=== PATIENT | female | born 1970 | race Caucasian/White ===

== ENCOUNTER → 2016-10-15 | Outpatient (CLI) | payer OTHER ==
[~2016-10-15] VITALS: Ht 170.2 cm; Wt 75.3 kg
[2016-10-15 09:47] VITALS: BP 122/75
--- NOTE | 2016-10-15 13:19 | RAD ---
PROCEDURE MR arthrogram of the left shoulder HISTORY Pain of the entire left shoulder since early September 2016. No known injury. TECHNIQUE Intra-articular contrast injected by different radiologist into the left shoulder, who will dictate that procedure separately. The standard 4 plane sequences were obtained. COMPARISON None FINDINGS Acromioclavicular joint is intact. No significant subdeltoid bursal fluid or contrast. No evidence of rotator cuff tear. No evidence of labral tear. No acute articular cartilage defect. No evidence of HAGL lesion. Biceps tendon is intact. No bone lesion or acute fracture. No acute soft tissue injury. IMPRESSION No significant abnormality. Electronically signed by: James Blanco MD (October 15, 2016 13:17:55)
== END | disposition home or self-care (01) ==
LOC: MRI 07:41
PROVIDERS: ATTEND Family Medicine
DX: S43.422A Sprain of left rotator cuff capsule, initial encounter (principal); X58.XXXA Exposure to other specified factors, initial encounter; Y93.89 Activity, other specified; Y92.89 Other specified places as the place of occurrence of the external cause; Y99.8 Other external cause status
CPT/HCPCS: 73222

== ENCOUNTER → 2016-10-15 | Outpatient (CLI) | payer OTHER ==
[2013-12-10 19:33] VITALS: BP 121/67
[~2016-10-15] MED LIST: GADOBUTROL 7.5 MMOL/7.5 ML VIAL INT ART ONE; IOHEXOL 300 MG/ML 50 ML VIAL. INT ART ONE; LIDOCAINE 1% / SOD BICARB 8.4% 20 ML VIAL. IJ ONE
--- NOTE | 2016-10-15 12:42 | RAD ---
Exam performed: Left shoulder injection. History: Chronic left shoulder pain. Date of service: 10/15/16. Comparison: None available Discussion: The procedure was explained to the patient and informed consent was obtained. Under fluoroscopy a site was marked on the left shoulder for subsequent arthrocentesis. The part was prepped and draped in the usual posterior fashion. 5 cc of 1% lidocaine was infiltrated into the skin and deeper tissues. Thereafter a 22-gauge spinal needle was advanced from the premarked site into the left shoulder. Intra-articular location of the needle tip was confirmed by injecting 5 cc of Omnipaque 300. Thereafter a total of 20 cc solution of 150 cc saline in 0.7 cc Gadavist mixture was injected into the left shoulder joint. After withdrawing the needle, dry swelling Band-Aid was applied at the puncture site. Patient was then sent for MRI of the left shoulder. Total fluoroscopy time of 0.4 minutes was utilized and 2 fluoroscopic spot images were seen on the PACS system. Impression: Technically successful left shoulder injection for subsequent MR arthrogram.
== END | disposition home or self-care (01) ==
LOC: RAD 09:44
PROVIDERS: ATTEND Family Medicine
DX: S43.402A Unspecified sprain of left shoulder joint, initial encounter (principal); X58.XXXA Exposure to other specified factors, initial encounter; Y93.89 Activity, other specified; Y92.89 Other specified places as the place of occurrence of the external cause; Y99.8 Other external cause status
CPT/HCPCS: 20605; 77002; Q9967; A9585

== ENCOUNTER → 2017-05-12 | Outpatient (CLI) | payer OTHER ==
[2013-12-10 19:33] VITALS: BP 121/67
--- NOTE | 2017-05-12 11:59 | KCIC ---
DATE: May 12, 2017 EXAM: DIGITAL DIAGNOSTIC BILATERAL HISTORY: Follow-up of asymmetric tissue densities right breast COMPARISON: May 06, 2016 and April 09, 2015 TECHNIQUE: Routine digital mammographic views were obtained. This study was interpreted with the benefit of Computerized Aided Detection (CAD). The breast parenchyma shows scattered fibroglandular densities. Breast parenchyma level B. FINDINGS: There is no suspicious findings. There is a marker from prior biopsy in the lateral right breast. IMPRESSION: No suspicious findings. BI-RADS CATEGORY: 1 NEGATIVE RECOMMENDED FOLLOW-UP: 12M 12 MONTH FOLLOW-UP PQRS compliance statement: Patient information was entered into a reminder system with a target due date May 12, 2018 for the next mammogram. Mammography is a sensitive method for finding small breast cancers, but it does not detect them all and is not a substitute for careful clinical examination. A negative mammogram does not negate a clinically suspicious finding and should not result in delay in biopsying a clinically suspicious abnormality. "Our facility is accredited by the [employer] Mammography Program."
== END | disposition home or self-care (01) ==
LOC: KCIC MAMMO 10:55
PROVIDERS: ATTEND Family Medicine
DX: N64.89 Other specified disorders of breast (principal)
CPT/HCPCS: G0204; 77066

== ENCOUNTER → 2017-05-25 | Outpatient (CLI) | payer OTHER ==
[2013-12-10 19:33] VITALS: BP 121/67
[2017-05-25 10:01] LABS: ALBUMIN 3.9 g/dL (3.4-5.0); ALBUMIN/GLOBULIN RATIO 0.9 (1.0-1.7); CALCIUM 8.5 mg/dL (8.5-10.1); CREATININE 0.8 mg/dL (0.6-1.0); GFR 77.6; POTASSIUM 4.3 mmol/L (3.5-5.1); TOTAL BILIRUBIN 0.4 mg/dL (0.2-1.0); TOTAL PROTEIN 8.2 g/dL (6.4-8.2)
[2017-05-25 10:02] LABS: CHOLESTEROL/HDL RATIO 4.4
== END | disposition home or self-care (01) ==
LOC: LAB 09:30
PROVIDERS: ATTEND Family Medicine
DX: F41.9 Anxiety disorder, unspecified (principal); E78.5 Hyperlipidemia, unspecified
CPT/HCPCS: 36415; 80053; 80061; 82306

== ENCOUNTER 2018-03-21 19:57 | Emergency (ER) | payer OTHER ==
[~2018-03-21] VITALS: Ht 170.2 cm; Wt 81.6 kg
[2018-03-21 20:12] VITALS: BP 149/70
[2018-03-21] MEDS ORDERED: NAPR-514 PO (21:02)
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
== END 2018-03-21 21:04 | disposition home or self-care (01) ==
LOC: ER 19:57
DX: S99.912A Unspecified injury of left ankle, initial encounter (principal); Z90.710 Acquired absence of both cervix and uterus; Z88.2 Allergy status to sulfonamides; W22.8XXA Striking against or struck by other objects, initial encounter; Y93.89 Activity, other specified; Y92.89 Other specified places as the place of occurrence of the external cause; Y99.8 Other external cause status
CPT/HCPCS: 73610; 99284

== ENCOUNTER → 2018-04-20 | Outpatient (CLI) | payer OTHER ==
[2018-03-21 20:12] VITALS: BP 149/70
[~2018-04-20] MED LIST changes: -GADOBUTROL 7.5 MMOL/7.5 ML VIAL INT ART ONE; -IOHEXOL 300 MG/ML 50 ML VIAL. INT ART ONE; -LIDOCAINE 1% / SOD BICARB 8.4% 20 ML VIAL. IJ ONE; +NAPR-514 PO
[2018-04-20 09:11] LABS: ALBUMIN 3.8 g/dL (3.4-5.0); CALCIUM 9.4 mg/dL (8.5-10.1); CREATININE 0.8 mg/dL (0.6-1.0); GFR 77.2; POTASSIUM 4.1 mmol/L (3.5-5.1); TOTAL BILIRUBIN 0.3 mg/dL (0.2-1.0); TOTAL PROTEIN 7.7 g/dL (6.4-8.2)
[2018-04-20 09:12] LABS: CHOLESTEROL/HDL RATIO 4.8
== END | disposition home or self-care (01) ==
LOC: LAB 08:22
PROVIDERS: ATTEND Family Medicine
DX: E78.5 Hyperlipidemia, unspecified (principal); R53.83 Other fatigue; R20.0 Anesthesia of skin
CPT/HCPCS: 36415; 80053; 80061; 82607; 84436; 84443

== ENCOUNTER → 2018-05-09 | Outpatient (CLI) | payer OTHER ==
[2018-05-09 20:12] LABS: FSH 25.1 mIU/mL (.); LUTEINIZING HORMONE 10.3 mIU/mL (.)
== END | disposition home or self-care (01) ==
LOC: LAB 11:30
PROVIDERS: ATTEND Family Medicine
DX: N95.9 Unspecified menopausal and perimenopausal disorder (principal)
CPT/HCPCS: 36415; 83001; 83002

== ENCOUNTER → 2018-05-15 | Outpatient (CLI) | payer OTHER ==
--- NOTE | 2018-05-15 12:34 | KCIC ---
Bone densitometry 05/15/2018 10:30 AM Indication: Early menopause. Family history of osteoporosis. History of adult fracture. Comparison Study: None. Discussion: Bone Densitometry was performed with dual photon absorption of the lumbar spine and proximal left femur. Lumbar Spine: Bone average density is 0.972 g/cm2 for L1-L4. T-Score is -0.7. Proximal left femur.: Bone average density is 0.791g/cm2. T-Score is -1.2. IMPRESSION: Osteopenia based on decreased bone mineral density, proximal left femur Note: Definitions established by the World Health Organization: Normal: T-score is -1.0 or above. Osteopenia: T-score is between -1.0 and -2.5. Osteoporosis: T-score is -2.5 or below. Electronically signed by: Cm Duncan MD (05/15/2018 12:30 PM) [id number]
--- NOTE | 2018-05-15 12:37 | KCIC ---
Bilateral digital screening mammograms with 3-D tomosynthesis: Reason for examination: Routine screening. Comparison is made to previous studies dated 05/12/2017 and 05/06/2016. Bilateral mammograms in CC and oblique projections were obtained with 2-D imaging and 3-D tomosynthesis imaging on a Siemens Inspiration unit and reviewed on the workstation. Interpretation was made with the benefit of CAD. The skin and nipples show no abnormalities. No abnormal axillary lymph nodes are seen. The breast parenchyma shows scattered fatty and fibroglandular density. (Breast density: Category B.) There continues to be a small nodular density at approximately the 9:00 C position posterior centrally within the right breast which probably represents a small intramammary lymph node. There are no new dominant masses, suspicious calcifications or architectural distortion. Impression: No evidence of malignancy. Recommend routine screening. BI-RAD Category 2: Benign. "Our facility is accredited by the [employer] Mammography [employer]." This patient's information has been entered into a reminder system for the patient to be notified with the results of her examination and a target date for the next mammogram. Electronically signed by: Stefanie Andrade MD (05/15/2018 12:33 PM) [id number]
== END | disposition home or self-care (01) ==
LOC: KCIC MAMMO 09:59
PROVIDERS: ATTEND Family Medicine
DX: Z12.31 Encounter for screening mammogram for malignant neoplasm of breast (principal); Z13.820 Encounter for screening for osteoporosis; M85.88 Other specified disorders of bone density and structure, other site; Z82.62 Family history of osteoporosis
CPT/HCPCS: 77063; 77067; 77080

== ENCOUNTER → 2019-12-11 | Outpatient (CLI) | payer OTHER | END | disposition home or self-care (01) | LOC: LAB 12:31 | PROVIDERS: ATTEND Internal Medicine Pulmonary Disease | DX: U07.1 COVID-19 (principal) | CPT/HCPCS: U0003-CS ==

== ENCOUNTER → 2020-01-04 | Outpatient (CLI) | payer OTHER | END | disposition home or self-care (01) | LOC: LAB 13:35 | PROVIDERS: ATTEND Internal Medicine Pulmonary Disease | DX: R43.8 Other disturbances of smell and taste (principal); Z20.828 Contact with and (suspected) exposure to other viral communicable diseases | CPT/HCPCS: U0003-CS ==

== ENCOUNTER → 2020-03-11 | Outpatient (CLI) | payer OTHER ==
--- NOTE | 2020-03-11 14:49 | KCIC ---
Bilateral digital screening mammograms with 3-D tomosynthesis: Reason for examination: Routine screening. Comparison is made to previous studies dated back to 05/25/2016. Bilateral mammograms in CC and oblique projections were obtained with 2-D imaging and 3-D tomosynthesis imaging on a Siemens Inspiration unit and reviewed on the workstation. Interpretation was made with the benefit of CAD. The skin and nipples show no abnormalities. No abnormal axillary lymph nodes are seen. The breast parenchyma shows scattered fatty and fibroglandular density. (Breast density: Category B.) There are no dominant masses, suspicious calcifications or architectural distortion. Biopsy clip remains present on the right. Impression: No evidence of malignancy. Recommend routine screening. BI-RAD Category 1: Negative. "Our facility is accredited by the [employer] Mammography Program." This patient's information has been entered into a reminder system for the patient to be notified with the results of her examination and a target date for the next mammogram. Electronically signed by: Stefanie Andrade MD (03/11/2020 2:46 PM) [id number]
== END ==
LOC: KCIC MAMMO 09:00
PROVIDERS: ATTEND Nurse Practitioner Family
DX: Z12.31 Encounter for screening mammogram for malignant neoplasm of breast (principal)
CPT/HCPCS: 77063; 77067

== ENCOUNTER → 2020-03-18 | Outpatient (CLI) | payer OTHER ==
[2020-03-18 07:41] LABS: HEMATOCRIT 40.2 % (36.0-47.0); HEMOGLOBIN 13.1 g/dL (12.0-15.5); RED BLOOD COUNT 4.61 x10^6/uL (3.50-5.40); WHITE BLOOD COUNT 7.1 x10^3/uL (4.0-11.0)
[2020-03-18 08:23] LABS: ALBUMIN 3.6 g/dL (3.4-5.0); ALBUMIN/GLOBULIN RATIO 0.9 (1.0-1.7); CALCIUM 8.9 mg/dL (8.5-10.1); CREATININE 0.8 mg/dL (0.6-1.0); GFR 76.6; POTASSIUM 4.5 mmol/L (3.5-5.1); TOTAL BILIRUBIN 0.2 mg/dL (0.2-1.0); TOTAL PROTEIN 7.7 g/dL (6.4-8.2)
[2020-03-18 08:25] LABS: CHOLESTEROL/HDL RATIO 4.6
[2020-03-18 08:31] LABS: FREE T4 0.9 ng/dL (0.76-1.46); THYROID STIM HORMONE (TSH) 1.315 uIU/mL (0.358-3.74)
== END ==
LOC: LAB 07:01
PROVIDERS: ATTEND Nurse Practitioner Family
DX: E78.5 Hyperlipidemia, unspecified (principal); F41.9 Anxiety disorder, unspecified
CPT/HCPCS: 36415; 80053; 80061; 82306; 83540; 83550; 84439; 84443; 85027

== ENCOUNTER → 2021-05-05 | Outpatient (CLI) | payer OTHER ==
--- NOTE | 2021-05-05 11:49 | KCIC ---
Bilateral digital screening mammograms with 3-D tomosynthesis: Reason for examination: Routine screening. Comparison is made to previous studies dated back to 04/09/2015. Bilateral mammograms in CC and oblique projections were obtained with 2-D imaging and 3-D tomosynthes is imaging on a Siemens Inspiration unit and reviewed on the workstation. Interpretation was made wit h the benefit of CAD. The skin and nipples show no abnormalities. No abnormal axillary lymph nodes are seen. The breast par enchyma shows scattered fatty and fibroglandular density. (Breast density: Category B.) There appears to be a small 6 mm nodule in the left breast at the 11:00 position 6.5 cm from the nipple. Recommend further evaluation with ultrasound. There are no other dominant masses, suspicious calcifications or architectural distortion. Impression: 6 mm nodule at the 11:00 position 6.5 cm from the nipple in the left breast. Recommend follow-up with ultrasound. BI-RADS Category 0: Incomplete. Needs additional imaging evaluation. "Our facility is accredited by the [employer] Mammography [employer]." This patient's information has been entered into a reminder system for the patient to be notified wit h the results of her examination and a target date for the next mammogram. Electronically signed by: Stefanie Andrade MD (05/05/2021 11:46 AM) [email or web address]
== END ==
LOC: KCIC MAMMO 08:54
PROVIDERS: ATTEND Nurse Practitioner Family
DX: Z12.31 Encounter for screening mammogram for malignant neoplasm of breast (principal)
CPT/HCPCS: 77063; 77067

== ENCOUNTER → 2021-05-28 | Outpatient (CLI) | payer OTHER ==
--- NOTE | 2021-05-28 13:13 | KCIC ---
US BREAST LT Clinical Indication: Reason: Call Back LT Breast from Mamm 05-05-21 Comparison: Bilateral mammogram 05/05/2021 and prior years. TECHNIQUE: Real-time ultrasound imaging of the left breast is performed. Findings: Accounting for the mass on mammogram at the 11:00 position 6 cm from the nipple there is a 6 x 3 mm c yst. No solid mass or architectural distortion is identified. There are no abnormal axillary lymph no love. IMPRESSION: 1. There is a small cyst in the left breast at the 11:00 position 6 cm from the nipple accounting fo r the mass on mammogram. Recommend return to routine mammogram screening. 2. BI-RADS Category 2, benign findings. Electronically signed by: Tejas Felix MD (05/28/2021 1:11 PM) [email or web address]
== END ==
LOC: KCIC US 12:49
PROVIDERS: ATTEND Nurse Practitioner Family
DX: N60.02 Solitary cyst of left breast (principal)
CPT/HCPCS: 76641

== ENCOUNTER → 2021-05-30 | Outpatient (CLI) | payer OTHER | LOC: LAB 02:29 | PROVIDERS: ATTEND Internal Medicine Pulmonary Disease | DX: R05.9 Cough, unspecified (principal); R51.9 Headache, unspecified; J02.9 Acute pharyngitis, unspecified; R09.81 Nasal congestion; R53.81 Other malaise; Z20.822 Contact with and (suspected) exposure to COVID-19 | CPT/HCPCS: U0003; U0005 ==

== ENCOUNTER → 2021-08-12 | Outpatient (CLI) | payer OTHER ==
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
== END ==
LOC: KCIC 12:45
PROVIDERS: ATTEND Nurse Practitioner Family
DX: M79.672 Pain in left foot (principal); Z68.29 Body mass index [BMI] 29.0-29.9, adult; Z18.10 Retained metal fragments, unspecified
CPT/HCPCS: 73630